=== PATIENT | female | born 1980 | race Caucasian/White ===

== ENCOUNTER 2020-12-26 08:00 | Day surgery (SDC) | payer OTHER ==
[2020-12-23 11:11] VITALS: BMI 28.7
--- NOTE | 2020-12-25 12:15 | P.GSHP ---
History of Present Illness H&P Date: 12/20/20 Chief Complaint: Right renal colic The patient is a 40-year-old white female with a history of urolithiasis. She was hospitalized earlier this month with an E. coli UTI complicated by a 3 mm right distal ureteral calculus at the ureterovesical junction. She exhibited signs of sepsis, so she underwent cystoscopy with right ureteral stent removal. She now comes for ureteroscopic removal of the calculus. She remains on antibiotics. - Constitutional Constitutional: Reports chills, Reports fever - Gastrointestinal Gastrointestinal: Denies nausea, Denies vomiting - Genitourinary (Female) Genitourinary: Reports flank pain, Reports kidney stones, Denies hematuria Past Medical History Past Medical History: Asthma Additional Past Medical History / Comment(s): scoliosis History of Any Multi-Drug Resistant Organisms: MRSA Date of last positivie culture/infection: 2004 MDRO Source:: feet Past Surgical History: No Surgical Hx Reported Past Psychological History: Depression - Past Family History Mother Family Medical History: No Reported History Medications and Allergies Home Medications Medication Instructions Recorded Confirmed Type Acetaminophen [Tylenol] 650 mg PO Q4H PRN 12/23/20 12/23/20 History Cephalexin [Keflex] 250 mg PO TID 12/23/20 12/23/20 History Allergies Allergy/AdvReac Type Severity Reaction Status Date / Time No Known Allergies Allergy Verified 12/23/20 10:59 Surgical - Exam - General well developed, well nourished, no distress - Respiratory normal respiratory effort - Abdomen Abdomen: soft, non tender, no guarding, no rigid, no rebound - Genitourinary normal external genitalia, normal perineum - Psychiatric oriented to time, oriented to person, oriented to place, speech is normal, memory intact Results - Imaging CT scan - abdomen: report reviewed, image reviewed Assessment and Plan (1) Calculus of ureter Status: Acute Code(s): N20.1 - CALCULUS OF URETER SNOMED Code(s): 54706213 (2) Calculus of kidney Status: Acute Code(s): N20.0 - CALCULUS OF KIDNEY SNOMED Code(s): 17424428 Plan: The patient's CT scan showed a 3 mm right UVJ calculus resulting in moderate right hydronephrosis. She was also noted to have a 4 mm right renal calculus. She now comes for cystoscopy, right ureteral stent removal, right ureteroscopy with Holmium laser lithotripsy. The UVJ calculus will be removed. Depending on the ease of which that is done, and the degree of ureteral dilation, it will then be decided whether or not to attempt removal of the right renal calculus. This is all been discussed in detail with the patient, who understands risks to include anesthesia, bleeding, infection, and ureteral injury.
--- NOTE | 2020-12-26 08:29 | XR ---
KUB HISTORY: Preop, ureteroscopy Frontal KUB submitted, no comparisons Right-sided double-J stent is in place. Calcifications within the pelvis are felt likely represent ph leboliths. Overlying bowel gas may obscure detail. No evident bowel obstruction or pneumoperitoneum. Bone mineralization is maintained. IMPRESSION: Postprocedural changes.
[2020-12-26 09:08] VITALS: TEMP 98.7
[2020-12-26] MEDS ORDERED: ONDANSETRON 4 MG/2 ML VIAL ONE (09:18)
[2020-12-26] MEDS ORDERED: DEXAMETHASONE SOD PHOSPHATE 4 MG/ML 1 ML VIAL IV ONE (09:21)
[2020-12-26] MEDS ORDERED: LACTATED RINGERS 1,000 ML IV ONE (09:21)
[2020-12-26] MEDS ORDERED: LIDOCAINE 1% (10MG/ML) FOR IV START INTRADERMA ONE (09:22)
[2020-12-26] MEDS ORDERED: fentaNYL (PF) 50 MCG/ML 2 ML AMP ONE (09:24)
[2020-12-26] MEDS ORDERED: LIDOCAINE 1% INJ 10MG/ML (20 ML MDV) ONE (09:24)
[2020-12-26] MEDS ORDERED: MIDAZOLAM 2 MG/2 ML VIAL ONE (09:24)
[2020-12-26] MEDS ORDERED: PROPOFOL 10 MG/ML 20 ML VIAL IV ONE (09:24)
[2020-12-26] MEDS ORDERED: ePHEDrine SULFATE/0.9% NACL/PF 50 MG/5 ML SYRINGE IV ONE (09:24)
--- NOTE | 2020-12-26 10:18 | FL ---
EXAMINATION TYPE: FL fluoroscopy <1hr DATE OF EXAM: 12/26/2020 CLINICAL HISTORY: Right-sided kidney stones. TECHNIQUE: Fluoroscopy. COMPARISON: Abdominal x-ray earlier today.. FINDINGS: Fluoroscopic guidance was provided during ureteroscope and right ureter stent removal proc edure performed by Dr. Gonzalez. A total of 2 seconds of fluoroscopic time was utilized during the pro cedure and 1 spot images was acquired. Single intraoperative image acquired shows proximal portion of the ureter stent. IMPRESSION: As Above.
--- NOTE | 2020-12-26 10:23 | P.OP ---
Date of Procedure: 12/26/20 Preoperative Diagnosis: Right ureteral calculus, right renal calculus Postoperative Diagnosis: Right renal calculi Procedure(s) Performed: Cystoscopy, right ureteral stent removal, right ureteroscopy with Holmium laser lithotripsy Anesthesia: ERIA Surgeon: Juan Carlos Gonzalez Estimated Blood Loss (ml): 0 IV fluids (ml): 500 Pathology: none sent Condition: stable Disposition: PACU Indications for Procedure: The patient is a 40-year-old white female with a history of urolithiasis. She was hospitalized earlier this month with an E. coli UTI complicated by a 3 mm right distal ureteral calculus at the ureterovesical junction. She was also noted to have a 4 mm right renal calculus. She exhibited signs of sepsis, so she underwent cystoscopy with right ureteral stent removal. She now comes for ureteroscopic removal of the calculus. She remains on antibiotics. Operative Findings: No ureteral calculi. 3 small right renal calculi, all fragmented completely. Description of Procedure: The patient was taken to the operating room and placed in the dorsolithotomy position, with legs supported in Sebastián stirrups. The external genitalia was prepped and draped sterilely. The 30 lens was used to introduce the 21-[employer] cystoscopic sheath through the urethra and into the bladder under direct vision. The bladder was examined in its entirety. No abnormalities were seen. The distal end of the right ureteral stent was grasped and removed along with the cystoscope. The mini flexible ureteroscope was advanced into the bladder, and the right ureteral orifice was cannulated. The ureteroscope was slowly advanced under direct vision. No ureteral calculi were seen. A 4 mm calculus was seen within a mid pole calyx. The 200 micron Holmium laser probe was passed through the ureteroscope, and lithotripsy was performed. The calculus appeared to be composed of calcium oxalate monohydrate. A fragmented well, primarily using a dusting mode, and lithotripsy was continued until there were no residual calculus fragments exceeding the size of the laser fiber tip. The remaining calyces were then examined. Small calculi were seen within 2 lower pole calyces, both adherent to the mucosa. These were both fragmented completely. No additional calculi were seen. The ureteroscope was slowly withdrawn under direct vision. There was no evidence of ureteral trauma, and no calculi seen. The patient tolerated the procedure well and was taken to the recovery room in stable condition. JORDON MARTINEZ Report: Procedure Acuity: Elective Stone Size and Location: 4 mm, right mid pole calyx Ureteral Dilation: No Ureteral Access Sheath Used: No Stone Sent for Analysis: No All Stones/Fragments Were Removed with a Basket: No Complications: No Preoperative Antibiotics Given: Yes Stent Placed: No Discharge Medications: None
[2020-12-26 11:01] VITALS: RESP 18
[2020-12-26 11:18] VITALS: BP 108/74; PULSE 89
== END 2020-12-26 11:32 | disposition home or self-care (01) ==
LOC: OR 08:00
PROVIDERS: ATTEND Urology
DX: N13.2 Hydronephrosis with renal and ureteral calculous obstruction (principal); N20.2 Calculus of kidney with calculus of ureter; J45.909 Unspecified asthma, uncomplicated; M41.9 Scoliosis, unspecified; Z86.14 Personal history of Methicillin resistant Staphylococcus aureus infection; F32.9 Major depressive disorder, single episode, unspecified; Z98.890 Other specified postprocedural states
CPT/HCPCS: 52353; 81025; 74018; C1758 ×3; J2250; J1100; J0690; J2405; J2001; J3010; J2704; 76000